=== PATIENT | female | born 1930 | race Caucasian/White ===

== ENCOUNTER 2019-05-26 09:04 | Day surgery (SDC) | payer MEDICARE ==
[2019-05-26] VITALS (9 sets, daily range): BP systolic 112–149; BP diastolic 59–78
[~2019-05-26] VITALS: Ht 167.6 cm; Wt 66.6 kg
[~2019-05-26 09:04] MED LIST: DABI150C PO; DILT-29 PO; GABA-530 PO; HYDR-3972 PO; LEUC10TA PO; METH2.5T PO; PRE5T PO; PROP150T2 PO
[2019-05-26] MEDS ORDERED: MIDAZolam 1mg/ml 10ml vial IV ONE (09:25)
[2019-05-26] MEDS ORDERED: fentaNYL/PF 50MCG/1 ML 2ML syringe IV ONE (09:25)
[2019-05-26] MEDS ORDERED: normal saline 1000ml 1,000 ML IV SCH (09:25)
[2019-05-26] MEDS ORDERED: COU3T PO (10:40)
[2019-05-26] MEDS ORDERED: REM100I (10:40)
[2019-05-26 11:31] LABS: EOSINOPHILS # (AUTO) 0.1 X10'3 (0-0.9); HEMOGLOBIN 12.8 g/dl (12.0-16.0); MONOCYTES # (AUTO) 0.7 X10'3 (0-0.9)
[2019-05-26 11:32] LABS: ALBUMIN 3.3 G/DL (3.4-5.0); ANION GAP 6 (8-16); BLOOD UREA NITROGEN 23 MG/DL (7-18); BUN/CREATININE RATIO 18.9 (6.6-38.0); CHLORIDE 108 MMOL/L (99-107); CREATININE 1.22 MG/DL (0.40-0.90); GLUCOSE 82 MG/DL (70-104); POTASSIUM 4.1 MMOL/L (3.5-5.1); SODIUM 142 MMOL/L (135-145); eGFR 42 ML/MIN
[2019-05-26 11:33] LABS: BASOPHILS # (AUTO) 0.1 X10'3 (0-0.2); BASOPHILS % (AUTO) 1.1 % (0-1); EOSINOPHILS % (AUTO) 1.8 % (0-6); HEMATOCRIT 38.8 % (35.0-45.0); LYMPHOCYTES # (AUTO) 2.5 X10'3 (1.1-4.8); LYMPHOCYTES % (AUTO) 30.5 % (21-51); MEAN CORPUSCULAR HEMOGLOBIN 34.8 PG (27.0-31.0); MEAN CORPUSCULAR VOLUME 105.6 FL (78-98); MEAN PLATELET VOLUME 9.3 FL (7.4-10.4); MONOCYTES % (AUTO) 8.2 % (2-12); NEUTROPHILS # (AUTO) 4.7 X10'3 (1.8-7.7); NEUTROPHILS % (AUTO) 58.4 % (42-75); PLATELET COUNT 232 X10'3 (140-440); RED BLOOD COUNT 3.67 X10'6 (4.20-5.60); RED CELL DISTRIBUTION WIDTH 16.2 % (11.5-14.5); WHITE BLOOD COUNT 8.1 X10'3 (4.5-11.0)
[2019-05-26 11:36] LABS: PARTIAL THROMBOPLASTIN TIME 35 SECONDS (22-32)
== END 2019-05-26 12:40 | disposition home or self-care (01) ==
LOC: SSTAY O 09:04 → MED 3N 09:11 → SSTAY O 12:40
PROVIDERS: ATTEND Internal Medicine Interventional Cardiology
DX: I48.0 Paroxysmal atrial fibrillation (principal); I10 Essential (primary) hypertension; I25.118 Atherosclerotic heart disease of native coronary artery with other forms of angina pectoris; Z86.73 Personal history of transient ischemic attack (TIA), and cerebral infarction without residual deficits; Z79.01 Long term (current) use of anticoagulants; Z88.0 Allergy status to penicillin; Z88.8 Allergy status to other drugs, medicaments and biological substances
CPT/HCPCS: 36415; 80048; 85025; 85610; 85730; 92960; 93005; J2250; J3010; J7030